=== PATIENT | female | born 1930 | race Caucasian/White ===

== ENCOUNTER 2019-07-24 18:56 | Inpatient (IN) | payer MEDICARE, MEDICAID ==
[~2019-07-24] VITALS: Ht 165.1 cm; Wt 65.6 kg
[2019-07-24 19:42] LABS: Basophils # (auto) 0.1 uL; Basophils % (auto) 0.9 % (0.0-2.0); Eosinophils # (auto) 0.2 uL; Eosinophils % (auto) 1.6 % (0.0-7.0); Hematocrit 45.9 % (36.0-46.0); Lymphocytes # (auto) 1.9 uL; Lymphocytes % (auto) 14.7 % (10.0-50.0); Mean Corpuscular Hemoglobin 29.5 pg (28.0-32.0); Mean Corpuscular Hgb Conc. 32.7 g/dL (32.0-36.0); Mean Corpuscular Volume 90.3 fL (80.0-100.0); Monocytes # (auto) 1.7 uL; Monocytes % (auto) 12.9 % (0.0-12.0); Neutrophils % (auto) 69.9 % (37.0-80.0); Platelet Count (auto) 28 10^3/uL (140-450); Red Blood Cells 5.09 10^6/uL (4.0-5.20); White Blood Cell 12.9 10^3/uL (4.4-10.8)
[2019-07-24 20:01] LABS: Albumin 3.2 g/dL (3.4-5.0); BUN/Creatinine Ratio 15.6; Calcium 8.3 mg/dL (8.5-10.1); Potassium 4.3 mmol/L (3.5-5.1)
[2019-07-24 20:04] LABS: Bilirubin, Total 1.4 mg/dL (0.2-1.0); Total Protein 6.6 g/dL (6.4-8.2)
[2019-07-24 20:24] LABS: INR 0.97 (0.9-1.15); Partial Thromboplastin Time 26.4 sec (23.64-32.05)
[2019-07-24] MEDS ORDERED: LEVOFLOXACIN 500MG 100 ML IV ONE (21:15)
[2019-07-24 22:25] LABS: Urine Bacteria FEW /hpf (None Seen); Urine Blood 1+ /uL (Negative); Urine Hyaline Cast FEW /lpf (0 - 2); Urine Mucus FEW (None Seen); Urine Specific Gravity 1.015 (1.001-1.035); Urine WBC 8 /hpf (0 - 5)
[2019-07-24] MEDS ORDERED: TEMAZEPAM 15 MG CAP PO PRN (22:30)
[2019-07-24] MEDS ORDERED: ONDANSETRON HCL 4 MG/2 ML VIAL IV PRN (22:30)
[2019-07-24] MEDS ORDERED: HYDROcodone-ACET 5/325MG TAB PO PRN (22:30)
[2019-07-25 05:14] VITALS: BP 94/66
--- NOTE | 2019-07-25 05:30 | NUR ---
MS admit from [facility] admitted to tele/MS after SBAR received from Charlotte DUARTE. Patient oriented to Randi Ruiz RN primary RN, unit, room, bed, and unit policies regarding patient care and visiting hours. Alert and oriented x 1 to self. 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 On bedrest, barker catheter patent and draining to gravity. Patient weighed by bedscale and encouraged to call if they need something. All questions and concerns addressed, patient verbalized understanding. Bed in lowest locked position, side rails up x 2, call light within reach. Will continue to monitor every hour and as needed.
[2019-07-25] MEDS: PANTOPRAZOLE 40 MG TAB PO SCH (06:00)
[2019-07-25] MEDS: MORPHINE SULFATE 4 MG/ML SYR/VIAL IV PRN ×2 (06:42→17:25)
--- NOTE | 2019-07-25 07:30 | NUR ---
OPENING SHIFT NOTE: Report received from NOC RNNorma. Assumed care of patient. Patient resting in bed, denies pain. GUERA Covarrubias at bedside for safety. Bed in lowest position, rails x2 up and call light within reach. Updated on plan of care. Will continue to monitor.
[2019-07-25 08:11] LABS: Basophils # (auto) 0.1 uL; Platelet Count (auto) 23 10^3/uL (140-450)
[2019-07-25 08:14] LABS: Basophils % (auto) 0.8 % (0.0-2.0); Eosinophils # (auto) 0.1 uL; Eosinophils % (auto) 0.5 % (0.0-7.0); Hematocrit 44.9 % (36.0-46.0); Lymphocytes # (auto) 0.9 uL; Lymphocytes % (auto) 6.4 % (10.0-50.0); Mean Corpuscular Hemoglobin 30.2 pg (28.0-32.0); Mean Corpuscular Hgb Conc. 33.3 g/dL (32.0-36.0); Mean Corpuscular Volume 90.5 fL (80.0-100.0); Monocytes # (auto) 1.2 uL; Monocytes % (auto) 8.5 % (0.0-12.0); Neutrophils # (auto) 12.3 uL; Neutrophils % (auto) 83.8 % (37.0-80.0); Red Blood Cells 4.97 10^6/uL (4.0-5.20); Red Cell Distribution Width 13.8 % (11.8-14.3); White Blood Cell 14.7 10^3/uL (4.4-10.8)
[2019-07-25 08:33] LABS: BUN/Creatinine Ratio 20.2; Calcium 8.6 mg/dL (8.5-10.1); Potassium 4.2 mmol/L (3.5-5.1)
[2019-07-25 09:00] VITALS: BP 119/76
--- NOTE | 2019-07-25 10:15 | NUR ---
MD: Dr John Bojorquez at bedside. Orders received.
[2019-07-25] MEDS: MEMANTINE HCL 5 MG TAB PO SCH (10:45)
[2019-07-25] MEDS: ENOXAPARIN SOD 30 MG/0.3 ML SYRINGE SC SCH (10:45)
[2019-07-25 11:11] LABS: Creatine Kinase IFCC 136 U/L (26-192)
[2019-07-25 13:00] VITALS: BP 118/77
--- NOTE | 2019-07-25 15:20 | NUR ---
CONSENT: Telephone consent for CTA chest with contrast received from granddaughter, Ayaka Casey. Consent witness by FELICIA Rosen.
--- NOTE | 2019-07-25 15:45 | NUR ---
FAMILY: Family at bedside. Updated on plan of care.
--- NOTE | 2019-07-25 16:00 | NUR ---
CTA: Patient taken via bed to radiology for CTA chest.
[2019-07-25] MEDS ORDERED: IOHEXOL 350 MG/ML 100ML IJ ONE (16:14)
[2019-07-25 17:00] VITALS: BP 118/72
[2019-07-25] MEDS: SODIUM CHLORIDE 0.9% 1,000 ML IV SCH (17:47)
--- NOTE | 2019-07-25 18:50 | NUR ---
MD: Dr Nicholas at bedside to see patient.
--- NOTE | 2019-07-25 19:30 | NUR ---
CLOSING SHIFT NOTE: Report given to NOC Meryl DUARTE. Endorsed care of patient.
[2019-07-25] MEDS: LEVOFLOXACIN 250MG 50 ML IV SCH (21:34)
[2019-07-25 21:45] VITALS: BP 109/69
[2019-07-26] VITALS (7 sets, daily range): BP systolic 109–128; BP diastolic 55–71
[2019-07-26] MEDS: SODIUM CHLORIDE 0.9% 1,000 ML IV SCH ×3 (02:00→20:30)
--- NOTE | 2019-07-26 04:00 | NUR ---
PT IS CALLING FOR LAURITA MADE AWARE SHE IS IN THE HOSPITAL REPOSITIONED IN BED IS ALERT TO PERSON
[2019-07-26] MEDS: PANTOPRAZOLE 40 MG TAB PO SCH (06:19)
--- NOTE | 2019-07-26 07:45 | NUR ---
OPENING SHIFT NOTE ASSUMED CARE OF PATIENT. PATIENT AWAKE AND ALERT SITTING UP IN BED. NO S/S OF DISTRESS OR SOB NOTED. PATIENT VERY EMMONAK AND CAN ONLY SEE SHADOWS. WILL ASSIST PATIENT NEEDED. BED IN LOWEST LOCKED POSITION, CALL LIGHT WITHIN REACH. CONTINUE TO MONITOR.
[2019-07-26] MEDS: MEMANTINE HCL 5 MG TAB PO SCH (09:37)
[2019-07-26] MEDS: ENOXAPARIN SOD 30 MG/0.3 ML SYRINGE SC SCH (09:38)
[2019-07-26] MEDS: MORPHINE SULFATE 4 MG/ML SYR/VIAL IV PRN ×2 (09:38→22:26)
--- NOTE | 2019-07-26 15:00 | NUR ---
PLATELET TRANSFUSION BEGAN PLATELET TRANSFUSION AT THIS TIME AFTER DOUBLE RN VERIFICATION. INSTRUCTED PATIENT ON S/S OF ADVERSE REACTION, PATIENT VERBALIZED UNDERSTANDING. PATIENT IS A&O X1 AT THIS TIME WILL REINFORCE TEACHING CONTINUALLY. RN CONTINUES AT BEDSIDE FOR MONITORING AT THIS TIME.
--- NOTE | 2019-07-26 15:15 | NUR ---
PLATELET TRANSFUSION VS CHECKED AFTER 15 MINUTES AND NOTED WNL. PATIENT HAS NO COMPLAINTS AT THIS TIME AND SHOWS NO S/S OF DISTRESS OR SOB NOTED. INCREASED TRANSFUSION RATE SLIGHTLY AT THIS TIME. WILL CONTINUE TO MONITOR PATIENT.
[2019-07-26 16:48] LABS: Basophils # (auto) 0.1 uL; Eosinophils # (auto) 0.2 uL; Hemoglobin 12.2 g/dL (12.2-16.2); Mean Corpuscular Hgb Conc. 32.9 g/dL (32.0-36.0); Monocytes # (auto) 1.7 uL
[2019-07-26 16:51] LABS: Basophils % (auto) 0.4 % (0.0-2.0); Eosinophils % (auto) 1.5 % (0.0-7.0); Hematocrit 37.2 % (36.0-46.0); Lymphocytes % (auto) 7.6 % (10.0-50.0); Mean Corpuscular Hemoglobin 29.7 pg (28.0-32.0); Mean Corpuscular Volume 90.5 fL (80.0-100.0); Neutrophils # (auto) 10.8 uL; Neutrophils % (auto) 78.5 % (37.0-80.0); Platelet Count (auto) 37 10^3/uL (140-450); Red Blood Cells 4.11 10^6/uL (4.0-5.20); Red Cell Distribution Width 13.6 % (11.8-14.3); White Blood Cell 13.7 10^3/uL (4.4-10.8)
--- NOTE | 2019-07-26 17:35 | NUR ---
TRANSFUSION COMPLETE TRANSFUSION IS COMPLETED AT THIS TIME, PATIENT TOLERATED WELL AND SHOWS NO S/S OF DISTRESS OR SOB AND HAS NO COMPLAINTS. WILL CONTINUE TO MONITOR.
--- NOTE | 2019-07-26 18:46 | NUR ---
END OF SHIFT NOTE PATIENT RESTING COMFORTABLY IN BED WITH EYES CLOSED. RESPIRATIONS EVEN AND UNLABORED. BED IN LOWEST LOCKED POSITION, CALL LIGHT WITHIN REACH. WILL ENDORSE CARE TO NOC RN.
--- NOTE | 2019-07-26 20:00 | NUR ---
Opening Shift Note Assumed care of patient, patient open eyes to name, oriented to self, reoriented to time, place, and situation. On oxygen at 2L via NC with even and unlabored respirations, no S/S of distress or SOB. Wilhelm intact and draining to gravity with clear light emily urine, no kinks. IV to right forearm intact and patent infusing NS at 100ml/hr. Bed low locked position with side rails up x 3 and call light within reach, bed alarm on. Instructed on POC and to call for assist PRN, will continue to monitor for changes Q1hr and PRN.
[2019-07-26] MEDS: LEVOFLOXACIN 250MG 50 ML IV SCH (22:08)
--- NOTE | 2019-07-26 22:30 | NUR ---
Optifoam Applied Preventative Optifoam applied to sacrum. Patient turned to left side. Will continue to turn q2hrs.
[2019-07-27] VITALS (12 sets, daily range): BP systolic 105–127; BP diastolic 46–65
[2019-07-27] MEDS: SODIUM CHLORIDE 0.9% 1,000 ML IV SCH ×2 (06:00→16:30)
[2019-07-27] MEDS: PANTOPRAZOLE 40 MG TAB PO SCH (06:00)
[2019-07-27 07:04] LABS: Basophils # (auto) 0.1 uL; Eosinophils # (auto) 0.2 uL; Hemoglobin 11.7 g/dL (12.2-16.2); Lymphocytes # (auto) 1.1 uL; Mean Corpuscular Hgb Conc. 33.2 g/dL (32.0-36.0); White Blood Cell 11.2 10^3/uL (4.4-10.8)
--- NOTE | 2019-07-27 07:04 | NUR ---
Closing note patient resting in bed with oxygen on at 2L via NC, even and unlabored respirations, no s/s of distress noted. IV intact and patent infusing IVF per order. Patient turned q2hrs throughout shift. Wilhelm intact and draining to gravity. Bed in low locked position with side rails up x 3 and call light within reach, bed alarm on. Endorsed care to day shift RN.
[2019-07-27 07:09] LABS: Basophils % (auto) 0.6 % (0.0-2.0); Eosinophils % (auto) 1.3 % (0.0-7.0); Hematocrit 35.1 % (36.0-46.0); Mean Corpuscular Hemoglobin 30.1 pg (28.0-32.0); Mean Corpuscular Volume 90.5 fL (80.0-100.0); Monocytes # (auto) 1.4 uL; Monocytes % (auto) 12.8 % (0.0-12.0); Neutrophils # (auto) 8.5 uL; Neutrophils % (auto) 75.3 % (37.0-80.0); Red Blood Cells 3.88 10^6/uL (4.0-5.20); Red Cell Distribution Width 13.4 % (11.8-14.3)
[2019-07-27 07:16] LABS: Platelet Count (auto) 49 10^3/uL (140-450)
[2019-07-27 07:23] LABS: BUN/Creatinine Ratio 18.1; Calcium 7.5 mg/dL (8.5-10.1); Potassium 3.8 mmol/L (3.5-5.1)
--- NOTE | 2019-07-27 08:00 | NUR ---
OPENING NOTE PATIENT ROUNDS DONE. PATIENT WAS AWAKE, AO X1 (ORIENTED TO SELF ONLY) NO SIGNS OF DISTRESS NOTED. PATIENT EXPERIENCES PAIN WHEN TRYING TO TURN, PREFERS TO LAY PRESSURE ON THE LEFT SIDE, DUE TO PAIN ON THE RIGHT SIDE (RELATED TO FRACTURED HIP). IV RUNNING .9NS AT 100, PATIENT ON 2L NC. CALL LIGHT WITHIN REACH, BRAKES LOCKED WITH BED IN LOWEST POSITION. Signed: 07/27/19 at 1720 by LENNOX COPPOLA <Co-Signature Required> Co-Signed: 07/27/19 at 1720 by Nazario Hein RN
[2019-07-27] MEDS: ENOXAPARIN SOD 30 MG/0.3 ML SYRINGE SC SCH (10:00)
[2019-07-27] MEDS: MEMANTINE HCL 5 MG TAB PO SCH (11:26)
--- NOTE | 2019-07-27 12:53 | NUR ---
URINALYSIS WATT SPECIMEN COLLECTED AND SENT TO LAB. Signed: 07/27/19 at 1315 by LENNOX COPPOLA <Co-Signature Required> Co-Signed: 07/27/19 at 1315 by Nazario Hein RN
--- NOTE | 2019-07-27 13:53 | NUR ---
PLATELET INFUSION BEGAN. RATE AT 50ML, TO MONITOR FOR ANY TRANSFUSION REACTIONS OVER THE NEXT 15 MINUTES. VITAL SIGNS WITHIN NORMAL LIMITS.
--- NOTE | 2019-07-27 14:08 | NUR ---
15 MINUTES POST TRANSFUSION BEGAN. NO SIGNS OF TRANSFUSION REACTION. RATE INCREASED FROM 50 ML TO 600 ML/HR. WILL CONTINUE TO MONITOR FOR ANY ADVERSE REACTIONS.
[2019-07-27] MEDS ORDERED: DEXTROSE (50%) 50ML SYRG IV PRN (14:15)
--- NOTE | 2019-07-27 15:03 | NUR ---
INFUSION END. PATIENT TOLERATED WELL. NO SIGNS OF ADVERSE REACTION. WILL CONTINUE TO MONITOR PATIENT.
--- NOTE | 2019-07-27 16:10 | NUR ---
FAMILY AT BEDSIDE PATIENT'S GRANDDAUGHTER, LAURITA, AT BEDSIDE. STATED CONCERNS ABOUT GRANDMOTHERS CONDITION STATING PATIENT APPEARS MORE LETHARGIC THAN YESTERDAY, DECREASED APPETITE, AND STATED PATIENTS PLATELETS ARE USUALLY IN THE (70s). DR ULLOA NOTIFIED, WILL DISCUSS CONCERNS WITH LAURITA 07/28 IN THE MORNING. GRANDDAUGHTER SAID TO CALL IF ANYTHING COMES UP, CLAIMS TO HAVE POWER OF MAMMA LOGIST. LAURITA INMAN Signed: 07/27/19 at 1719 by LENNOX COPPOLA <Co-Signature Required> Co-Signed: 07/27/19 at 1719 by Nazario Hein RN
--- NOTE | 2019-07-27 16:13 | NUR ---
assessment Patient is a 88 year old female who is alert and oriented. Prior to admission patient lived home with family and functioned with assistance. Per patient she fell and fractured her hip. Patient has a fww for home use. Patient does not not remember who her PCP is. I informed patient her post discharge needs to be determined after surgery and prior to discharge. Patient informed me to call her granddaughter Ayaka to find out what is best for her SNF or home with PT. I have left a message for Ayaka to return my call. Per Nazario DUARTE patient is not stable for surgery and will be here over the weekend. I informed patient she has a right to speak to a healthcare social worker regarding all care. I informed patient she has a right to participate in any and all discharge planning. Patient does not have a POA and advanced directive. I have offered patient information on POA and advanced directives. I informed the patient the advantages and benefits of having an Advanced Directive. Patient verbalized understanding and agreed to discharge plan. Addendum: 07/27/19 at 1620 by Emmanuelle RANGEL Amended: Links added.
[2019-07-27] MEDS: InsuLIN REG 1unit/0.01ml Soln (100units/ml) SC SCH (18:00)
--- NOTE | 2019-07-27 18:12 | NUR ---
FOLLOW UP ON PLATELET UNIT 2 PER BLOOD BANK, THE PLATELETS HAVE NOT ARRIVED YET.
[2019-07-27] MEDS: ACCU-CHEK COMFORT CURVE STRIP VI SCH (18:42)
--- NOTE | 2019-07-27 20:00 | NUR ---
Opening Shift Note Assumed care of patient, awake and alert. No S/S of distress/SOB or pain. 02 @ 2L/min via nasal cannula. Patient is sleeping. Body is in good alignment. Color to right lower extremity is adequate. Patient repositioned, Bed in low position and call light in reach, will continue to monitor for changes Q1hr and PRN.
[2019-07-28] VITALS (12 sets, daily range): BP systolic 93–126; BP diastolic 49–66
[2019-07-28] MEDS: LEVOFLOXACIN 250MG 50 ML IV SCH ×2 (00:38→21:46)
[2019-07-28] MEDS: methylPREDNISolone SOD SUCC 125 MG/2 ML VL IV SCH ×4 (00:38→21:46)
[2019-07-28] MEDS: SODIUM CHLORIDE 0.9% 1,000 ML IV SCH ×3 (02:30→22:39)
[2019-07-28] MEDS: PANTOPRAZOLE 40 MG TAB PO SCH (05:44)
[2019-07-28] MEDS: ACCU-CHEK COMFORT CURVE STRIP VI SCH ×4 (05:52→18:20)
[2019-07-28] MEDS: InsuLIN REG 1unit/0.01ml Soln (100units/ml) SC SCH ×4 (05:52→18:20)
--- NOTE | 2019-07-28 07:10 | NUR ---
CARE ENDORSED TO NOC SHIFT RN PLATELET TRANSFUSION STILL RUNNING. FIELD OBSERVER WILL FINISH THE TRANSFUSION.
--- NOTE | 2019-07-28 07:23 | NUR ---
Patient resting comfortably. No distress noted. Report given to day shift RN.
--- NOTE | 2019-07-28 07:30 | NUR ---
Opening Shift Note Assumed care of patient, awake and alert. No S/S of distress/SOB or pain. Instructed on POC and to call for assist PRN, will continue to monitor for changes Q1hr and PRN.
[2019-07-28 07:43] LABS: % Iron Saturation 8.4 % (15-50)
[2019-07-28 08:36] LABS: Basophils # (auto) 0 uL; Basophils % (auto) 0.2 % (0.0-2.0); Eosinophils # (auto) 0 uL; Lymphocytes # (auto) 0.3 uL; Monocytes # (auto) 0.2 uL; Neutrophils % (auto) 94.1 % (37.0-80.0); Nucleated Red Blood Cells % 0.1 %
[2019-07-28 08:38] LABS: Eosinophils % (auto) 0.1 % (0.0-7.0); Hematocrit 33.1 % (36.0-46.0); Lymphocytes % (auto) 3.1 % (10.0-50.0); Mean Corpuscular Hgb Conc. 33.3 g/dL (32.0-36.0); Mean Corpuscular Volume 90.1 fL (80.0-100.0); Monocytes % (auto) 2.5 % (0.0-12.0); Neutrophils # (auto) 9.1 uL; Platelet Count (auto) 49 10^3/uL (140-450); Red Blood Cells 3.68 10^6/uL (4.0-5.20); Red Cell Distribution Width 13.4 % (11.8-14.3); White Blood Cell 9.7 10^3/uL (4.4-10.8)
--- NOTE | 2019-07-28 09:45 | NUR ---
SPOKE WITH DR. KIDD. INFORMED ME THAT HE WANTS TO DO THE PATIENT'S PROCEDURE TOMORROW 07/29. THE PATIENT'S PLATELETS HAVE BEEN TOO LOW TO DO THE PROCEDURE. OBTAINED ORDER TO RECHECK PLATELETS AT 1200. WILL IN[address] KIDD OF THE RESULTS AND OBTAIN FURTHER ORDERS. WELL DETERMINE WHETHER OR NOT THE PATIENT IS GOING TO SURGERY TOMORROW.
[2019-07-28] MEDS: MEMANTINE HCL 5 MG TAB PO SCH (10:23)
--- NOTE | 2019-07-28 11:15 | NUR ---
WOUND CARE NOTE: IN TO SEE PATIENT AT THIS TIME FOR SKIN INTEGRITY. PATIENT ADMITTED TO [facility] WITH DIAGNOSIS OF RIGHT FEMUR FRACTURE. CURRENT YAEL SCORE IS 12. PATIENT WAS FOUND DOWN ON THE FLOOR BY THE PATIENT'S FAMILY. SHE WAS DOWN ON HARD SURFACE FOR UNKNOWN PERIOD OF TIME. PATIENT IS AWAITING SURGERY FOR FEMUR FRACTURE, PENDING IMPROVEMENT IN HER PLATELET COUNT. TODD FOAM BOOTS APPLIED TO BILATERAL FEET/HEELS TO OFFLOAD HER HEELS PREVENTATIVE. PATIENT IS NOTED TO HAVE WHAT APPEARS TO BE A DTI TO THE RIGHT/LEFT SACRUM. SKIN IS INTACT, DARK MAROON, NON BLANCHING. OPTIFOAM GENTLE SACRAL DRESSING IN PLACE. WOUND WAS PHOTOGRAPHED FOR REFERENCE. UNABLE TO PLACE PATIENT ON AIR MATTRESS D/T HER HIP FRACTURE STATUS. ADVISED BEDSIDE NURSE TO PROVIDE GOOD QUALITY TURNS ONTO HER LEFT SIDE, AND SUPINE POSITION. SHE SHOULD AVOID REPOSITIONING ONTO HER RIGHT HIP UNTIL AFTER SURGICAL REPAIR. PATIENT SHOULD BE TURNED OFTEN, D/T HER DTI STATUS, AVOIDING SPENDING TOO MUCH TIME ON RESTING ON HER WOUND. RECOMMEND: FREQUENT TURN SCHEDULE, AVOIDING POSITIONING ONTO RIGHT HIP, TODD FOAM BOOTS, BID/PRN APPLICATION WITH MOISTURE BARRIER CREAM, OPTIFOAM GENTLE SACRAL DRESSING, DIETARY CONSULT, CONTINUED MONITORING BY WOUND CARE TEAM. Addendum: 07/28/19 at 1417 by Ligia Alatorre RN Amended: Links added.
[2019-07-28 12:01] LABS: Basophils # (auto) 0 uL; Basophils % (auto) 0.1 % (0.0-2.0); Eosinophils # (auto) 0 uL; Hematocrit 35.8 % (36.0-46.0); Hemoglobin 11.8 g/dL (12.2-16.2); Lymphocytes # (auto) 0.2 uL; Lymphocytes % (auto) 3.1 % (10.0-50.0); Mean Corpuscular Hemoglobin 29.7 pg (28.0-32.0); Mean Corpuscular Hgb Conc. 33.1 g/dL (32.0-36.0); Mean Corpuscular Volume 89.9 fL (80.0-100.0); Monocytes # (auto) 0.1 uL; Monocytes % (auto) 1.5 % (0.0-12.0); Neutrophils # (auto) 7.5 uL; Neutrophils % (auto) 95.3 % (37.0-80.0); Platelet Count (auto) 67 10^3/uL (140-450); Red Blood Cells 3.98 10^6/uL (4.0-5.20); Red Cell Distribution Width 13.7 % (11.8-14.3); White Blood Cell 7.9 10^3/uL (4.4-10.8)
--- NOTE | 2019-07-28 14:41 | NUR ---
NUTRITION ASSESSMENT NOTES Please refer to link notes of nutrition screen form filed under the intervention section of the plan of care for further details. Est. Needs: 1800 kcal to 2050 kcal (25-30 kcal/kgBW), 59 gms to 71 gms pro (1.0-1.2 gms/kgBW). Will continue to monitor pertinent labs and reassess nutrient need prn Thank you. Addendum: 07/28/19 at [address] Amended: Links added.
--- NOTE | 2019-07-28 17:17 | NUR ---
Transfusion of platelets unit 1 began starting rate at 50ml/hr. will continue to stay in the room for 15 minutes and monitor the patient.
--- NOTE | 2019-07-28 17:32 | NUR ---
15 minute assessment patient tolerating transfusion well. vital signs remain within baseline ranges. no signs or reports of transfusion reactions. infusion rate increased to 600 ml/hr. will continue to monitor infusion.
--- NOTE | 2019-07-28 18:35 | NUR ---
TRANSFUSION OF 2ND UNIT STARTED. STARTED AT 50ML/HR. WILL WATCH FOR 15 MINS TO ASSESS FOR ANY SIGNS OF TRANSFUSION REACTION. VITAL SIGNS WITHIN BASELINE.
--- NOTE | 2019-07-28 18:50 | NUR ---
15 MINUTE ASSESSMENT NO SIGNS OR REPORTS OF A TRANSFUSION REACTION. INFUSION RATE INCREASED TO 600ML/HR. VITAL SIGNS WITHIN NORMAL LIMITS. WILL CONTINUE TO MONITOR PATIENT'S INFUSION.
--- NOTE | 2019-07-28 20:00 | NUR ---
Opening Shift Note Assumed care of patient, awake and alert. No S/S of distress/SOB or pain. Patient receiving last unit of Platelets. No signs or symptoms of adverse reaction. She is talkative with confusion, pulling at IV. IV to RAC remains intact. Instructed on POC and to call for assist PRN, will continue to monitor for changes Q1hr and PRN. Bed in low position and call light in reach.
--- NOTE | 2019-07-28 20:29 | NUR ---
Post Platelet transfusion Vital signs: 123/62, 97.7, 82, 20. Condition remains unchanged.
[2019-07-28] MEDS: ACETAMINOPHEN 325 MG TAB PO PRN (21:03)
[2019-07-29] MEDS: InsuLIN REG 1unit/0.01ml Soln (100units/ml) SC SCH ×4 (00:09→18:01)
[2019-07-29] MEDS: ACCU-CHEK COMFORT CURVE STRIP VI SCH ×5 (00:09→23:58)
--- NOTE | 2019-07-29 05:00 | NUR ---
IV insertion IV access obtained, via clean sterile technique by inserting 20 gauge catheter at Left forearm after one attempt). IV secured properly. No trauma to site. Patient tolerated procedure well.
--- NOTE | 2019-07-29 05:37 | NUR ---
IV removal IV DC'd with sterile technique, catheter fully intact. Pressure dressing applied to site right forearm. Patient tolerated procedure well. Discharged with aftercare instructions per MD. NOTE: EKG performed for scheduled right hip surgery today.
[2019-07-29 05:55] VITALS: BP 94/55
[2019-07-29] MEDS: PANTOPRAZOLE 40 MG TAB PO SCH (06:00)
[2019-07-29] MEDS: methylPREDNISolone SOD SUCC 125 MG/2 ML VL IV SCH ×2 (06:02→22:07)
--- NOTE | 2019-07-29 07:15 | NUR ---
Patient resting comfortably asking for her son. No distress noted. Report given to day shift RN.
[2019-07-29 07:25] LABS: Basophils # (auto) 0 uL; Eosinophils # (auto) 0 uL; Hematocrit 32.5 % (36.0-46.0); Hemoglobin 10.7 g/dL (12.2-16.2); Lymphocytes # (auto) 0.5 uL; Lymphocytes % (auto) 2.7 % (10.0-50.0); Mean Corpuscular Hemoglobin 29.6 pg (28.0-32.0); Mean Corpuscular Volume 89.7 fL (80.0-100.0); Monocytes # (auto) 1.1 uL; Monocytes % (auto) 6.1 % (0.0-12.0); Neutrophils # (auto) 15.7 uL; Neutrophils % (auto) 91.2 % (37.0-80.0); Platelet Count (auto) 147 10^3/uL (140-450); Red Blood Cells 3.62 10^6/uL (4.0-5.20); Red Cell Distribution Width 13.3 % (11.8-14.3); White Blood Cell 17.2 10^3/uL (4.4-10.8)
--- NOTE | 2019-07-29 07:30 | NUR ---
Opening Shift Note Assumed care of patient, awake and alert. No S/S of distress/SOB or pain when laying still. Instructed on POC and to call for assist PRN, will continue to monitor for changes Q1hr and PRN.
[2019-07-29] MEDS ORDERED: fentaNYL CITRATE 100 MCG/2 ML VL ONE ×2 (07:36→08:02)
[2019-07-29] MEDS ORDERED: fentaNYL CITRATE 5 ML ONE (07:36)
[2019-07-29] MEDS ORDERED: SODIUM CHLORIDE LOCK 30 ML ONE (07:36)
[2019-07-29] MEDS ORDERED: ETOMIDATE (2MG/ML) 20ML VIAL IV ONE (07:36)
[2019-07-29] MEDS ORDERED: MIDAZOLAM HCL 1MG/1ML-2 ML VIAL ONE ×2 (07:36→09:14)
[2019-07-29] MEDS ORDERED: ROCURONIUM 10MG/ML 10ML VIAL IV ONE (07:36)
[2019-07-29] MEDS ORDERED: LIDOCAINE HCL 2% TOP JELLY 5ML TOP ONE (07:38)
[2019-07-29] MEDS ORDERED: LIDOCAINE 2% (LOCAL ANESTH.) PF 5ml SDV ONE (07:38)
[2019-07-29 08:00] VITALS: BP 102/58
[2019-07-29 08:00] LABS: INR 1.02 (0.9-1.15); Partial Thromboplastin Time 28.5 sec (23.64-32.05)
[2019-07-29] MEDS ORDERED: TETRACAINE 1% INJ 2 ML VIAL IJ ONE (08:00)
[2019-07-29] MEDS ORDERED: ceFAZolin 1GM/50ML 50 ML IV ONE (08:00)
[2019-07-29] MEDS ORDERED: PROPOFOL 10 MG/ML 20 ML IV ONE (08:02)
[2019-07-29] MEDS ORDERED: EPINEPHrine HCL 1 MG/1 ML AMP ONE (08:02)
[2019-07-29] MEDS ORDERED: HYDROCORTISONE SOD SUCC 100 MG/2ML INJ VIAL ONE (09:25)
[2019-07-29] MEDS ORDERED: ACCU-CHEK COMFORT CURVE STRIP VI ONE (09:45)
[2019-07-29] MEDS ORDERED: ONDANSETRON HCL 4 MG/2 ML VIAL IV PRN (09:45)
[2019-07-29] MEDS ORDERED: HYDROmorphone HCL 2 MG/ML VL IV PRN (09:45)
[2019-07-29] MEDS ORDERED: fentaNYL CITRATE 100 MCG/2 ML VL IV PRN (09:45)
[2019-07-29] MEDS: LACTATED RINGER'S 1,000 ML IV SCH ×2 (10:03→20:03)
[2019-07-29] MEDS: ceFAZolin 1GM/50ML 50 ML IV SCH ×3 (11:06→22:26)
[2019-07-29] MEDS: MEMANTINE HCL 5 MG TAB PO SCH (11:07)
[2019-07-29] MEDS: SODIUM CHLORIDE 0.9% 1,000 ML IV SCH ×3 (11:07→21:57)
[2019-07-29 13:00] VITALS: BP 90/47
[2019-07-29] MEDS: ACETAMINOPHEN 325 MG TAB PO PRN (13:05)
[2019-07-29] MEDS: SODIUM CHLOR 0.9% PF (SALINE LOCK) 10ML VIAL/SYR IV SCH ×2 (15:11→21:56)
[2019-07-29] MEDS: MORPHINE SULF INJ 2 MG/ML SYRINGE 1ML IV PRN (16:10)
[2019-07-29 17:00] VITALS: BP 119/56
--- NOTE | 2019-07-29 20:00 | NUR ---
RECEIVED IN BED ANSWERS TO HER NAME REPOSITIONED TO LEFT SIDE RT HIP DRESSING WITH OLD DRAINAGE SAME IS DRY WATT IS INTACT AND DRAINING YELLOW URINE DENIES ANY PAIN AT THIS TIME
[2019-07-29] MEDS: LEVOFLOXACIN 250MG 50 ML IV SCH (21:55)
[2019-07-29 22:00] VITALS: BP 114/71
[2019-07-30 04:56] VITALS: BP 117/68
[2019-07-30] MEDS: ACCU-CHEK COMFORT CURVE STRIP VI SCH ×4 (05:57→23:30)
[2019-07-30] MEDS: LACTATED RINGER'S 1,000 ML IV SCH ×2 (05:59→16:03)
[2019-07-30] MEDS: PANTOPRAZOLE 40 MG TAB PO SCH (06:04)
[2019-07-30] MEDS: InsuLIN REG 1unit/0.01ml Soln (100units/ml) SC SCH ×5 (06:05→23:31)
[2019-07-30] MEDS: SODIUM CHLOR 0.9% PF (SALINE LOCK) 10ML VIAL/SYR IV SCH ×3 (06:07→22:02)
--- NOTE | 2019-07-30 06:50 | NUR ---
DENIES PAIN IS PULLING ON WATT IV IE INFILLTRATED ATTEM PTED TO REINSERT X3 NO LUCK.BED ALARM IS ON
[2019-07-30 06:57] LABS: Hematocrit 34.7 % (36.0-46.0); Hemoglobin 11.3 g/dL (12.2-16.2); Mean Corpuscular Hgb Conc. 32.7 g/dL (32.0-36.0); Mean Corpuscular Volume 88.7 fL (80.0-100.0); Platelet Count (auto) 150 10^3/uL (140-450); Red Blood Cells 3.91 10^6/uL (4.0-5.20); Red Cell Distribution Width 13.7 % (11.8-14.3); White Blood Cell 19.9 10^3/uL (4.4-10.8)
[2019-07-30 07:05] LABS: Basophils % (manual) 0 (0.0-2.0); Blast Cells 0; Eosinophils % (manual) 0 (0-7); Metamyelocytes % 0; Myelocytes % 0; Promyelocytes % 0; Reactive Lymphocytes 0
--- NOTE | 2019-07-30 07:05 | NUR ---
IV REMOVED FROM LT WRIST
[2019-07-30 07:16] LABS: Band Neutrophils % (manual) 1; Lymphocytes % (manual) 2 (10.0-50.0); Monocytes % (manual) 7 (0-12)
[2019-07-30 07:26] LABS: Albumin 2.5 g/dL (3.4-5.0); Calcium 7.8 mg/dL (8.5-10.1); Potassium 3.1 mmol/L (3.5-5.1)
--- NOTE | 2019-07-30 07:30 | NUR ---
Opening Shift Note Assuming care of patient at this time. Patient is awake and alert to herself. Patient is having some periods of confusion. Patient believes she needs to get up to use bathroom. Instructed patient on the placement of barker. Patient is also expressing that she needs to have surgery. Educated patient that surgical procedure took place yesterday. Bed is locked and lowered. Repositioned patient. Instructed patient and family (both granddaughter and daughter have called) on the plan of care for today and to call for assistance as needed. Call light within reach. Will continue to round hourly and as needed.
[2019-07-30 07:31] LABS: BUN/Creatinine Ratio 21.9; Bilirubin, Total 0.7 mg/dL (0.2-1.0); Total Protein 5.9 g/dL (6.4-8.2)
[2019-07-30 09:00] VITALS: BP 138/80
[2019-07-30 09:30] LABS: Ferritin 378.6 ng/mL (10-322); Folate (Folic Acid) 12.27 ng/mL (5.38-24)
--- NOTE | 2019-07-30 09:55 | NUR ---
Physical Therapy Patient has gotten up to chair at this time with physical therapy.
--- NOTE | 2019-07-30 10:00 | NUR ---
at bedside Dr. Bojorquez at bedside discussing plan of care with patient and this RN. The plan is to discharge patient tomorrow.
--- NOTE | 2019-07-30 10:10 | NUR ---
Call to Family Call to Granddaughter at this time to determine discharge preferences. No answer. Left a message with contact info. Awaiting callback.
[2019-07-30] MEDS: MEMANTINE HCL 5 MG TAB PO SCH (10:58)
[2019-07-30] MEDS: methylPREDNISolone SOD SUCC 125 MG/2 ML VL IV SCH ×2 (10:58→22:02)
[2019-07-30] MEDS: MORPHINE SULF INJ 2 MG/ML SYRINGE 1ML IV PRN ×3 (10:58→23:22)
--- NOTE | 2019-07-30 11:26 | NUR ---
Return call from Family Ayaka, granddaughter, has called at this time. Family wants patient to go to [facility]. Will notify social psychologist.
--- NOTE | 2019-07-30 11:28 | NUR ---
Call to Type Cutter Call to Emmanuelle Shen in social worker delinquency prevention. Left a message regarding SNF placement and family's preferences. Awaiting callback.
--- NOTE | 2019-07-30 11:33 | NUR ---
Cement Truck [employer]er Spoke to Emmanuelle. Emmanuelle is now aware about family's wish to [facility].
[2019-07-30 13:00] VITALS: BP 148/78
--- NOTE | 2019-07-30 14:11 | NUR ---
D/C Planning Per SS consult for SNF placement. Information and choice letter was given to granddatab Marley via verbal report began to read list for SNF and she requested [facility]. Pt granddaughter Ayaka verbalized understanding d/c plan. Contacted [facility] Ph: ) Fax: ( [phone]) faxed medical records. Per Marcus from [facility] Pt has been accepted to room [address] Sinclair. Will set up transportation upon d/c day.
[2019-07-30] MEDS: SODIUM CHLORIDE 0.9% 1,000 ML IV SCH (14:30)
--- NOTE | 2019-07-30 15:53 | NUR ---
Nutrition Consult and Follow-up Notes Wt.: 64.3 kg as of yesterday. Pt's on oxygen via nasal cannula, asleep, no immediate family member at bedside during rounds this morning. Pt's s/p Closed reduction internal fixation right intertrochanter hip fracture (07/29/19), no signs of distress noted earlier, currently on Regular diet, with inadequate PO intake aeb 50% ave. consumed meals (x6) in last 3 days. Est. Needs: 1800 kcal to 2050 kcal (25-30 kcal/kgBW), 59 gms to 71 gms pro (1.0-1.2 gms/kgBW). Will continue to monitor pertinent labs and reassess nutrient need prn Labs: Gluc 135 H, Cl 108 H, K 3.1 L, BUN 21 H, Ca 7.8 L, AST 74 H, ALT 98 H, Tpro 5.9 L, Alb 2.5 L Skin: Stephen scale 13, mod risk, pt's right lower hip incision dry and intact per manager workers compensation. GI: Pt's no bowel activity since 07/24/19 per manager workers compensation. PES: Partially resolved: Increased nutrient needs r/t current medical condition aeb 105% IBW, BMI 21.8 kg/m2. decreased muscle mass, NPO for surgery. Altered nutrition related lab values r/t current/chronic medical condition aeb hyperglycemia,low Fe.TIBC% sat levels. Will continue to monitor PO intake, skin status, pertinent labs and weight trend. F/u in 3 to 5 days. Rec.: 1.) Consider Cardiac: 2 gms Na, Low Chol, Low Fat diet with Ensure Enlive 1 carton BID). 2.) If Albumin continues trending down, consider Prostat 1 pkt BID. 3.) Consider daily MVI with minerals and Asc acid 500 mgs BID with daily Fe 325 mg prn and Asc acid 500 mgs BID. 4.) Continue close supervision and feeding assistance prn during meals. 5.) Refer to RD for further nutrition educ. and weight monitoring upon discharge. 6.) Continue current plan of care. Thank you for this consult.
[2019-07-30 17:00] VITALS: BP 130/69
--- NOTE | 2019-07-30 19:22 | NUR ---
Closing Shift Note Patient is resting in bed. Patient does not appear to be in any distress or shortness of breath. Report given to Meryl night monitor RN. Will endorse care to the night monitor RN.
[2019-07-30 21:41] VITALS: BP 154/80
[2019-07-30] MEDS: LEVOFLOXACIN 250MG 50 ML IV SCH (22:01)
--- NOTE | 2019-07-30 22:45 | NUR ---
RECEIVE IN BED PULLING AT IV AND WATT IV INFITRATED SAME REMOVED IV RESTARTED 22 GAUGE IN LT AC
[2019-07-31] MEDS: SODIUM CHLORIDE 0.9% 1,000 ML IV SCH (00:30)
[2019-07-31] MEDS: LACTATED RINGER'S 1,000 ML IV SCH ×2 (02:03→12:03)
[2019-07-31 05:00] VITALS: BP 116/64
[2019-07-31] MEDS: ACCU-CHEK COMFORT CURVE STRIP VI SCH ×2 (05:58→12:00)
[2019-07-31] MEDS: PANTOPRAZOLE 40 MG TAB PO SCH (06:04)
[2019-07-31] MEDS: InsuLIN REG 1unit/0.01ml Soln (100units/ml) SC SCH ×2 (06:05→12:00)
[2019-07-31] MEDS: SODIUM CHLOR 0.9% PF (SALINE LOCK) 10ML VIAL/SYR IV SCH (06:06)
[2019-07-31 06:44] LABS: Hematocrit 30.3 % (36.0-46.0); Hemoglobin 10.1 g/dL (12.2-16.2); Mean Corpuscular Hemoglobin 29.6 pg (28.0-32.0); Mean Corpuscular Hgb Conc. 33.3 g/dL (32.0-36.0); Platelet Count (auto) 116 10^3/uL (140-450); Red Blood Cells 3.41 10^6/uL (4.0-5.20); Red Cell Distribution Width 13.6 % (11.8-14.3); White Blood Cell 16.6 10^3/uL (4.4-10.8)
[2019-07-31 06:46] LABS: Basophils % (manual) 0 (0.0-2.0); Blast Cells 0; Eosinophils % (manual) 0 (0-7); Myelocytes % 0; Promyelocytes % 0; Reactive Lymphocytes 0
[2019-07-31 07:07] LABS: Band Neutrophils % (manual) 1; Lymphocytes % (manual) 1 (10.0-50.0); Metamyelocytes % 1; Monocytes % (manual) 6 (0-12)
--- NOTE | 2019-07-31 07:30 | NUR ---
Opening Shift Note Assuming care of patient at this time. Patient is awake and alert to herself. Patient denies pain. Patient shows no signs or symptoms of distress or shortness of breath. Bed is locked and lowered with side rails up x2. Repositioned patient. Instructed patient and family (granddaughter has called) on the plan of care for today and to call for assistance as needed. Call light within reach. Will continue to round hourly and as needed.
--- NOTE | 2019-07-31 08:18 | NUR ---
Barker Catheter Per Dr. Bojorquez, patient is to be discharged with barker catheter.
[2019-07-31 09:00] VITALS: BP 97/53
--- NOTE | 2019-07-31 09:35 | NUR ---
D/C planning Contacted General transport ph:) spoke to Advised Malachi to set up transport between 12:30-13:30. Addendum: 07/31/19 at 0939 by JERICA RANGEL Amended: Links added.
[2019-07-31] MEDS: MEMANTINE HCL 5 MG TAB PO SCH (09:44)
[2019-07-31] MEDS: MORPHINE SULF INJ 2 MG/ML SYRINGE 1ML IV PRN (09:44)
[2019-07-31] MEDS ORDERED: RIVAROXABAN 10 MG TAB PO SCH (10:00)
[2019-07-31] MEDS ORDERED: ENOXAPARIN SOD 30 MG/0.3 ML SYRINGE SC SCH (10:00)
--- NOTE | 2019-07-31 10:25 | NUR ---
Re: Call to Family Call to granddaughter at this time. Granddaughter is now aware of patient pick-up time between 12:30-13:30.
--- NOTE | 2019-07-31 12:30 | NUR ---
Family at bedside Daughter, Lenore, and family friend at bedside awaiting transport of patient.
--- NOTE | 2019-07-31 12:50 | NUR ---
Pt being trans to another hosp Order obtained for transfer of [facility] to [facility]. Report called/given to Naty. Report given to transport team. Medication reconciliation form completed and copy given to transport team to give to facility. Transported via [facility] accompanied by daughter, Lenore, and family friend along with transfer paperwork. No distress noted on time of departure. Family notified of destination and room number, verbalized understanding.
[2019-07-31 12:53] VITALS: BP 108/66
--- NOTE | 2019-07-31 13:02 | NUR ---
Report Report given to Naty at [facility]. Naty is aware that patient is in route.
== END 2019-07-31 12:45 | DRG 480 ==
LOC: ER 18:56 → EDBD 18:56 → OVERFLOW 18:57 → CENTRAL 07-25 05:10
PROVIDERS: ADMIT Nurse Practitioner; ATTEND Family Medicine
PROC: 30233R1 Transfusion of Nonautologous Platelets into Peripheral Vein, Percutaneous Approach (ICD-10-PCS; principal; 2019-07-26)
PROC: 0QS606Z Reposition Right Upper Femur with Intramedullary Internal Fixation Device, Open Approach (ICD-10-PCS; 2019-07-29)
DX: S72.141A Displaced intertrochanteric fracture of right femur, initial encounter for closed fracture (principal); J18.1 Lobar pneumonia, unspecified organism; N39.0 Urinary tract infection, site not specified; J44.0 Chronic obstructive pulmonary disease with (acute) lower respiratory infection; F03.90 Unspecified dementia, unspecified severity, without behavioral disturbance, psychotic disturbance, mood disturbance, and anxiety; E78.5 Hyperlipidemia, unspecified; N18.3 Chronic kidney disease, stage 3 (moderate); I12.9 Hypertensive chronic kidney disease with stage 1 through stage 4 chronic kidney disease, or unspecified chronic kidney disease; E86.0 Dehydration; E78.00 Pure hypercholesterolemia, unspecified; D69.6 Thrombocytopenia, unspecified; F41.1 Generalized anxiety disorder; I25.10 Atherosclerotic heart disease of native coronary artery without angina pectoris; E11.22 Type 2 diabetes mellitus with diabetic chronic kidney disease; H54.8 Legal blindness, as defined in USA; W18.39XA Other fall on same level, initial encounter; Z86.73 Personal history of transient ischemic attack (TIA), and cerebral infarction without residual deficits; Y93.89 Activity, other specified; Y92.89 Other specified places as the place of occurrence of the external cause; Y99.8 Other external cause status; Z79.899 Other long term (current) drug therapy
CPT/HCPCS: 36415; 70450; 71045; 71275; 72125; 73501; 73502; 73700; 76000; 76700; 80048; 80053; 81001; 82550; 82607; 82728; 82746; 82962; 83010; 83540; 83550; 83615; 84436; 84443; 84484; 85007; 85025; 85027; 85045; 85379; 85610; 85730; 86038; 86850; 86880; 86900; 86901; 87040; 87086; 93005; 93306; 93970; 97110; 97530; A6198; C1713; G0378; J0171; J0690; J1815; J1956; J2001; J2250; J2704

== ENCOUNTER 2019-08-09 14:14 | Inpatient (IN) | payer MEDICARE, MEDICAID ==
[~2019-08-09] VITALS: Ht 154.9 cm; Wt 69.4 kg
[2019-08-09 15:37] LABS: Albumin 2.5 g/dL (3.4-5.0); BUN/Creatinine Ratio 19.3; Calcium 8.1 mg/dL (8.5-10.1); Potassium 3.9 mmol/L (3.5-5.1)
[2019-08-09 15:40] LABS: Bilirubin, Total 1.3 mg/dL (0.2-1.0); Total Protein 5.3 g/dL (6.4-8.2)
[2019-08-09 15:47] LABS: Basophils # (auto) 0.1 uL; Basophils % (auto) 0.8 % (0.0-2.0); Hemoglobin 10.3 g/dL (12.2-16.2); Mean Corpuscular Hgb Conc. 32.3 g/dL (32.0-36.0); Red Blood Cells 3.52 10^6/uL (4.0-5.20)
[2019-08-09 15:48] LABS: INR 1.28 (0.9-1.15)
[2019-08-09 15:49] LABS: Eosinophils # (auto) 0.4 uL; Eosinophils % (auto) 2.2 % (0.0-7.0); Lymphocytes # (auto) 1.1 uL; Lymphocytes % (auto) 7.2 % (10.0-50.0); Mean Corpuscular Hemoglobin 29.3 pg (28.0-32.0); Mean Corpuscular Volume 90.9 fL (80.0-100.0); Monocytes # (auto) 1.1 uL; Monocytes % (auto) 7.1 % (0.0-12.0); Neutrophils # (auto) 13.2 uL; Neutrophils % (auto) 82.7 % (37.0-80.0); Red Cell Distribution Width 14.8 % (11.8-14.3); White Blood Cell 15.9 10^3/uL (4.4-10.8)
[2019-08-09 16:19] LABS: Platelet Count (auto) 17 10^3/uL (140-450)
[2019-08-09 16:53] LABS: Urine Bacteria NONE SEEN /hpf (None Seen); Urine Blood 2+ /uL (Negative); Urine Mucus FEW (None Seen); Urine Specific Gravity 1.019 (1.001-1.035); Urine WBC 5 /hpf (0 - 5)
[2019-08-09] MEDS ORDERED: HYDROcodone-ACET 10/325MG TAB PO ONE (17:15)
[2019-08-09] MEDS ORDERED: ACETAMINOPHEN 325 MG TAB PO PRN (21:45)
[2019-08-09] MEDS ORDERED: ONDANSETRON HCL 4 MG/2 ML VIAL IV PRN (21:45)
[2019-08-09] MEDS ORDERED: cefTRIAXone 1GM/50ML D5W 50 ML IV ONE (21:45)
[2019-08-09] MEDS ORDERED: HYDROcodone-ACET 5/325MG TAB PO PRN (21:45)
[2019-08-09] MEDS: ATORVASTATIN 20 MG TAB PO SCH (22:00)
[2019-08-09 22:30] VITALS: BP 97/56
[2019-08-09 22:46] VITALS: BP 104/53
[2019-08-09 23:07] VITALS: BP 94/52
[2019-08-10] MEDS ORDERED: ALBUMIN 5% 250 ML IV ONE (02:30)
[2019-08-10] MEDS ORDERED: SODIUM CHLORIDE 0.9% 500 ML IV ONE (04:45)
[2019-08-10] MEDS: SODIUM CHLORIDE 0.9% 1,000 ML IV SCH ×2 (05:42→19:18)
[2019-08-10 06:37] VITALS: BP 92/47
--- NOTE | 2019-08-10 07:00 | NUR ---
Telemetry admit from ER SIN BOSS admitted to Telemetry unit after SBAR received. Patient oriented to Sj corbett RN, unit, room 220, bed A, and unit policies regarding patient care and visiting hours. Patient now on continuous telemetry monitoring, tele box #38 and telemetry reading on arrival to unit is SR 82. Patient placed on bedside oxygen, weighed by bedscale and encouraged to call if they need something. All questions and concerns addressed, patient verbalized understanding. Patient is confused. Wound photo taken for sacral wound.
[2019-08-10 09:00] VITALS: BP 115/65
[2019-08-10] MEDS: cefTRIAXone 1GM/50ML D5W 50 ML IV SCH (09:03)
[2019-08-10] MEDS ORDERED: CLOPIDOGREL BISULFATE 75 MG TAB PO SCH (10:00)
[2019-08-10] MEDS ORDERED: RIVAROXABAN 10 MG TAB PO SCH (10:00)
[2019-08-10] MEDS: MEMANTINE HCL 5 MG TAB PO SCH (10:13)
[2019-08-10] MEDS: PANTOPRAZOLE 40 MG TAB PO SCH (10:13)
--- NOTE | 2019-08-10 11:00 | NUR ---
WOUND DRESSING DONE ON SACRUM WOUND CLEANSE WITH WOUND CLEANSER, PAT DRY, ZGUARD AND OPTIFOAM APPLIED.
[2019-08-10 11:23] LABS: Basophils # (auto) 0.1 uL; Eosinophils # (auto) 0.3 uL; Hematocrit 25.8 % (36.0-46.0); Hemoglobin 8.5 g/dL (12.2-16.2); Lymphocytes # (auto) 0.8 uL; Monocytes % (auto) 7.6 % (0.0-12.0)
[2019-08-10 11:25] LABS: Eosinophils % (auto) 1.9 % (0.0-7.0); Lymphocytes % (auto) 5.7 % (10.0-50.0); Mean Corpuscular Hemoglobin 29.2 pg (28.0-32.0); Mean Corpuscular Volume 88.5 fL (80.0-100.0); Neutrophils # (auto) 11.3 uL; Neutrophils % (auto) 83.8 % (37.0-80.0); Red Blood Cells 2.92 10^6/uL (4.0-5.20); Red Cell Distribution Width 14.7 % (11.8-14.3); White Blood Cell 13.5 10^3/uL (4.4-10.8)
[2019-08-10 11:38] LABS: Platelet Count (auto) 30 10^3/uL (140-450)
[2019-08-10 11:47] LABS: BUN/Creatinine Ratio 17.1; Calcium 7.5 mg/dL (8.5-10.1); Potassium 3.9 mmol/L (3.5-5.1)
[2019-08-10 13:00] VITALS: BP 105/52
--- NOTE | 2019-08-10 14:35 | NUR ---
pt seen by wound care nurse Rasheeda, she said she ordered air mattress bed for the pt.
--- NOTE | 2019-08-10 14:40 | NUR ---
WOUND CARE NOTE: Wound care consult received from nursing. Patient is a 88yo female admitted for thrombocytopenia and SIRS. Patient with a history of dementia, hyperlipidemia, CVA and right hip surgery. Patient seen with bedside RNMaday. Patient is alert and denies pain. Last Stephen score is 16. Patient is incision to right hip which is C/D/I. Patient also with wound to sacrum. Patient with open area that measures 2x1.5cm. No other open wounds noted. RECOMMENDATIONS: Dietary consult; turn q2hrs; specialty bed; Nursing to cleanse sacral wound with wound cleanser, pat dry, apply ZGUARD BID/PRN, cover with OPTIFOAM GENTLE dressing; wound care team to follow. Addendum: 08/10/19 at 1735 by YENNI WHITE RN Amended: Links added.
--- NOTE | 2019-08-10 16:20 | NUR ---
[place] AND [facility]NAL[facility] OF [facility] AT BEDSIDE, [place] REMOVED THE NI.
[2019-08-10 17:00] VITALS: BP 100/49
--- NOTE | 2019-08-10 18:48 | NUR ---
PT TRANSFERRED TO AIR MATTRESS BED.
[2019-08-10] MEDS ORDERED: DEXTROSE (50%) 50ML SYRG IV PRN (19:00)
[2019-08-10 22:00] VITALS: BP 108/54
[2019-08-10] MEDS: ATORVASTATIN 20 MG TAB PO SCH (22:57)
[2019-08-10] MEDS: methylPREDNISolone SOD SUCC 125 MG/2 ML VL IV SCH (22:58)
[2019-08-11] MEDS: ACCU-CHEK COMFORT CURVE STRIP VI SCH ×5 (00:40→23:37)
[2019-08-11] MEDS: InsuLIN REG 1unit/0.01ml Soln (100units/ml) SC SCH ×5 (00:41→23:42)
[2019-08-11 05:00] VITALS: BP 115/66
[2019-08-11] MEDS: methylPREDNISolone SOD SUCC 125 MG/2 ML VL IV SCH ×3 (06:01→21:30)
--- NOTE | 2019-08-11 07:30 | NUR ---
Opening Shift Note Assumed care of patient. No S/S of distress/SOB or pain. Instructed on POC and to call for assist PRN, will continue to monitor for changes Q1hr and PRN. Patient is on air mattress.
[2019-08-11 07:34] LABS: Eosinophils # (auto) 0 uL; Lymphocytes # (auto) 0.4 uL; Mean Corpuscular Hemoglobin 30.2 pg (28.0-32.0); Mean Corpuscular Volume 90.5 fL (80.0-100.0); Monocytes # (auto) 0.1 uL; Monocytes % (auto) 0.9 % (0.0-12.0)
[2019-08-11 07:35] LABS: Basophils # (auto) 0 uL; Basophils % (auto) 0.2 % (0.0-2.0); Hematocrit 27.9 % (36.0-46.0); Hemoglobin 9.3 g/dL (12.2-16.2); Lymphocytes % (auto) 2.6 % (10.0-50.0); Mean Corpuscular Hgb Conc. 33.4 g/dL (32.0-36.0); Neutrophils # (auto) 13.9 uL; Neutrophils % (auto) 96.3 % (37.0-80.0); Red Blood Cells 3.09 10^6/uL (4.0-5.20); Red Cell Distribution Width 14.7 % (11.8-14.3); White Blood Cell 14.5 10^3/uL (4.4-10.8)
[2019-08-11] MEDS: SODIUM CHLORIDE 0.9% 1,000 ML IV SCH ×2 (07:35→21:45)
[2019-08-11 07:40] LABS: % Iron Saturation 10.2 % (15-50)
[2019-08-11 08:06] LABS: Platelet Count (auto) 33 10^3/uL (140-450)
[2019-08-11 09:00] VITALS: BP 104/55
--- NOTE | 2019-08-11 09:37 | NUR ---
Dr. Sinclair in to see patient as hospitalist.
[2019-08-11] MEDS: MEMANTINE HCL 5 MG TAB PO SCH (10:09)
[2019-08-11] MEDS: CYANOCOBALAMIN 500 MCG TAB PO SCH (10:09)
[2019-08-11] MEDS: cefTRIAXone 1GM/50ML D5W 50 ML IV SCH (10:09)
[2019-08-11] MEDS: PANTOPRAZOLE 40 MG TAB PO SCH (10:09)
[2019-08-11] MEDS ORDERED: METHIMAZOLE 5 MG TAB PO ONE (10:15)
[2019-08-11] MEDS: IRON SUCROSE COMPLEX 200 MG in SODIUM CHL 0.9% 100 ML IV SCH (11:45)
[2019-08-11 13:00] VITALS: BP 104/58
[2019-08-11 17:00] VITALS: BP 115/63
--- NOTE | 2019-08-11 20:00 | NUR ---
RECEIVE IN BED ON AIR MATRESS REPOSITIONED ON LEFT SIDE NO VOICED COMPLAINTS
[2019-08-11] MEDS: ATORVASTATIN 20 MG TAB PO SCH (21:30)
[2019-08-11 22:00] VITALS: BP 107/57
[2019-08-12 05:00] VITALS: BP 110/59
[2019-08-12] MEDS: InsuLIN REG 1unit/0.01ml Soln (100units/ml) SC SCH ×4 (06:00→23:34)
[2019-08-12] MEDS: ACCU-CHEK COMFORT CURVE STRIP VI SCH ×4 (06:03→23:34)
[2019-08-12] MEDS: methylPREDNISolone SOD SUCC 125 MG/2 ML VL IV SCH ×3 (06:05→21:31)
--- NOTE | 2019-08-12 07:30 | NUR ---
Opening Shift Note Assumed care of patient, awake and pleasantly confused. No S/S of distress/SOB or pain. Instructed on POC and to call for assist PRN, will continue to monitor for changes Q1hr and PRN. Patient on air mattress.
[2019-08-12 07:46] LABS: Basophils # (auto) 0 uL; Basophils % (auto) 0.2 % (0.0-2.0); Eosinophils # (auto) 0 uL; Monocytes # (auto) 0.4 uL; Neutrophils # (auto) 19.6 uL
[2019-08-12 07:48] LABS: Hematocrit 27.6 % (36.0-46.0); Hemoglobin 9.4 g/dL (12.2-16.2); Lymphocytes # (auto) 0.4 uL; Lymphocytes % (auto) 2.1 % (10.0-50.0); Mean Corpuscular Hemoglobin 30.2 pg (28.0-32.0); Mean Corpuscular Hgb Conc. 34.2 g/dL (32.0-36.0); Mean Corpuscular Volume 88.5 fL (80.0-100.0); Neutrophils % (auto) 95.7 % (37.0-80.0); Platelet Count (auto) 61 10^3/uL (140-450); Red Blood Cells 3.12 10^6/uL (4.0-5.20); Red Cell Distribution Width 14.7 % (11.8-14.3); White Blood Cell 20.5 10^3/uL (4.4-10.8)
[2019-08-12 08:05] LABS: Albumin 2.6 g/dL (3.4-5.0); Potassium 3.8 mmol/L (3.5-5.1)
[2019-08-12 08:08] LABS: Bilirubin, Total 0.9 mg/dL (0.2-1.0); Total Protein 5.4 g/dL (6.4-8.2)
[2019-08-12 08:23] VITALS: BP 106/52
[2019-08-12] MEDS: PANTOPRAZOLE 40 MG TAB PO SCH (10:00)
[2019-08-12] MEDS: SODIUM CHLORIDE 0.9% 1,000 ML IV SCH ×2 (10:05→23:27)
[2019-08-12] MEDS: cefTRIAXone 1GM/50ML D5W 50 ML IV SCH (10:29)
[2019-08-12] MEDS: CYANOCOBALAMIN 500 MCG TAB PO SCH (10:30)
[2019-08-12] MEDS: METHIMAZOLE 5 MG TAB PO SCH (10:30)
[2019-08-12] MEDS: MEMANTINE HCL 5 MG TAB PO SCH (10:31)
[2019-08-12 12:05] VITALS: BP 102/56
[2019-08-12] MEDS: IRON SUCROSE COMPLEX 200 MG in SODIUM CHL 0.9% 100 ML IV SCH (12:57)
--- NOTE | 2019-08-12 13:10 | NUR ---
NUTRITION CONSULT/ASSESSMENT NOTES Please refer to link notes of nutrition screen form filed under the intervention section of the plan of care for further details. Est. Needs: 1450 kcal to 1850 kcal (20-25 kcal/kgBW), 74 gms to 89 gms pro (1.0-1.2 gms/kgBW). Will continue to monitor pertinent labs and reassess nutrient need prn Thank you for this consult. Addendum: 08/12/19 at [address] Amended: Links added.
--- NOTE | 2019-08-12 15:00 | NUR ---
Dr. Adolfo Washington in to see patient for orthopedic follow up.
[2019-08-12 16:56] VITALS: BP 117/58
[2019-08-12 21:00] VITALS: BP 111/58
--- NOTE | 2019-08-12 21:00 | NUR ---
RECEIVE IN BED PULLING ON TELEMETRY REORIENT TO SURROUNDINGS IS CALLING FOR FAMILY MEMBER REPOSITIONED
[2019-08-12] MEDS: ATORVASTATIN 20 MG TAB PO SCH (21:38)
--- NOTE | 2019-08-13 04:35 | NUR ---
PULLED LT EXTERNAL JUGULAR IV OUT TIP IS INTACT .COMPLETE BED LINEN DONE ATTEMPTED TO REINSERT IV NO SUCCESS
[2019-08-13 05:00] VITALS: BP 106/50
[2019-08-13] MEDS: methylPREDNISolone SOD SUCC 125 MG/2 ML VL IV SCH ×3 (06:00→22:34)
[2019-08-13] MEDS: InsuLIN REG 1unit/0.01ml Soln (100units/ml) SC SCH ×3 (06:07→17:46)
[2019-08-13] MEDS: ACCU-CHEK COMFORT CURVE STRIP VI SCH ×3 (06:07→17:46)
--- NOTE | 2019-08-13 08:00 | NUR ---
Opening Shift Note Assumed care of patient, resting with eyes closed, wakes easily to touch/sound. No IV at this time, attempt unsuccessful. Another floor nurse will try when available. Until then, unable to give Rocephin. Will start when IV access available. No S/S of distress/SOB or pain. Instructed on POC and to call for assist PRN, will continue to monitor for changes Q1hr and PRN.
[2019-08-13 09:00] VITALS: BP 100/53
[2019-08-13] MEDS: cefTRIAXone 1GM/50ML D5W 50 ML IV SCH (09:00)
[2019-08-13 09:58] LABS: Basophils # (auto) 0.1 uL; Eosinophils # (auto) 0 uL; Hemoglobin 8.4 g/dL (12.2-16.2); Lymphocytes # (auto) 0.4 uL
[2019-08-13] MEDS: MEMANTINE HCL 5 MG TAB PO SCH (09:58)
[2019-08-13] MEDS: PANTOPRAZOLE 40 MG TAB PO SCH (09:58)
[2019-08-13] MEDS: METHIMAZOLE 5 MG TAB PO SCH (09:58)
[2019-08-13 09:59] LABS: Basophils % (auto) 0.3 % (0.0-2.0); Hematocrit 25.6 % (36.0-46.0); Lymphocytes % (auto) 1.8 % (10.0-50.0); Mean Corpuscular Hemoglobin 29.7 pg (28.0-32.0); Mean Corpuscular Volume 89.9 fL (80.0-100.0); Monocytes # (auto) 0.6 uL; Neutrophils # (auto) 19.7 uL; Neutrophils % (auto) 94.9 % (37.0-80.0); Nucleated Red Blood Cells % 0.1 %; Platelet Count (auto) 53 10^3/uL (140-450); Red Blood Cells 2.84 10^6/uL (4.0-5.20); Red Cell Distribution Width 14.9 % (11.8-14.3); White Blood Cell 20.7 10^3/uL (4.4-10.8)
[2019-08-13] MEDS: CYANOCOBALAMIN 500 MCG TAB PO SCH (09:59)
[2019-08-13] MEDS: FLUCONAZOLE 100 MG TAB PO SCH (10:15)
[2019-08-13 10:17] LABS: Albumin 2.4 g/dL (3.4-5.0); BUN/Creatinine Ratio 29.7; Calcium 7.8 mg/dL (8.5-10.1); Potassium 3.6 mmol/L (3.5-5.1)
[2019-08-13 10:19] LABS: Bilirubin, Total 0.6 mg/dL (0.2-1.0); Total Protein 4.9 g/dL (6.4-8.2)
[2019-08-13 11:28] LABS: Ferritin 172.3 ng/mL (10-322)
[2019-08-13 11:29] LABS: Folate (Folic Acid) 6.25 ng/mL (5.38-24)
[2019-08-13 13:00] VITALS: BP 102/59
[2019-08-13] MEDS: IRON SUCROSE COMPLEX 200 MG in SODIUM CHL 0.9% 100 ML IV SCH (13:13)
[2019-08-13 17:00] VITALS: BP 129/70
[2019-08-13 21:44] VITALS: BP 127/68
--- NOTE | 2019-08-13 22:30 | NUR ---
IV insertion IV access obtained, via clean sterile technique by inserting 22 gauge catheter at left wrist after 1 attempt. IV secured properly. No trauma to site. Patient tolerated well.
[2019-08-13] MEDS: ATORVASTATIN 20 MG TAB PO SCH (22:34)
[2019-08-14] MEDS: InsuLIN REG 1unit/0.01ml Soln (100units/ml) SC SCH ×4 (00:28→18:00)
[2019-08-14] MEDS: ACCU-CHEK COMFORT CURVE STRIP VI SCH ×4 (00:28→18:01)
[2019-08-14 04:48] LABS: Basophils # (auto) 0.1 uL; Basophils % (auto) 0.4 % (0.0-2.0); Eosinophils # (auto) 0 uL; Hemoglobin 8.7 g/dL (12.2-16.2); Lymphocytes # (auto) 0.4 uL; Lymphocytes % (auto) 2.3 % (10.0-50.0); Mean Corpuscular Hemoglobin 30.2 pg (28.0-32.0); Mean Corpuscular Hgb Conc. 33.6 g/dL (32.0-36.0); Mean Corpuscular Volume 89.7 fL (80.0-100.0); Monocytes # (auto) 0.4 uL; Monocytes % (auto) 2.1 % (0.0-12.0); Neutrophils % (auto) 95.2 % (37.0-80.0); Platelet Count (auto) 53 10^3/uL (140-450); Red Cell Distribution Width 15.2 % (11.8-14.3); White Blood Cell 16.8 10^3/uL (4.4-10.8)
[2019-08-14 05:11] LABS: BUN/Creatinine Ratio 25.8
[2019-08-14] MEDS: methylPREDNISolone SOD SUCC 125 MG/2 ML VL IV SCH (05:56)
[2019-08-14 05:57] VITALS: BP 100/58
[2019-08-14 09:00] VITALS: BP 112/54
[2019-08-14] MEDS: cefTRIAXone 1GM/50ML D5W 50 ML IV SCH (09:01)
[2019-08-14] MEDS: FLUCONAZOLE 100 MG TAB PO SCH (10:37)
[2019-08-14] MEDS: PANTOPRAZOLE 40 MG TAB PO SCH (10:37)
[2019-08-14] MEDS: METHIMAZOLE 5 MG TAB PO SCH (10:37)
[2019-08-14] MEDS: MEMANTINE HCL 5 MG TAB PO SCH (10:37)
[2019-08-14] MEDS: CYANOCOBALAMIN 500 MCG TAB PO SCH (10:37)
[2019-08-14] MEDS: IRON SUCROSE COMPLEX 200 MG in SODIUM CHL 0.9% 100 ML IV SCH (12:13)
[2019-08-14 12:27] LABS: INR 1.02 (0.9-1.15)
[2019-08-14 13:00] VITALS: BP_SYST 113; BP_SYST 94; BP_DIAS 49; BP_DIAS 71
--- NOTE | 2019-08-14 14:55 | NUR ---
prashanth Polo made aware of the social worker clinical consult pending discharge.
--- NOTE | 2019-08-14 15:23 | NUR ---
spoke with Melani, pt was accepted by [facility], pt is going to room 508 bed 1, accepting doctor is doctor Sinclair, bean picker time is 5pm.
--- NOTE | 2019-08-14 15:25 | NUR ---
FAMILY MADE AWARE PT WILL BE TRANSFERRED TO [facility], ROOM 508, BED 1 AND DIRECTOR OF MARKET RESEARCH TIME AT 5PM, SPOKE WITH LAURITA.
--- NOTE | 2019-08-14 15:30 | NUR ---
SPOKE WITH DR. VERNON PER DR. VERNON MIDLINE IS OKAY.
--- NOTE | 2019-08-14 15:49 | NUR ---
D/C planning Per consult for Pt to return back to [facility]. Contacted [facility] Ph:) Fax:) faxed medical records. Per Marcus from [facility] Pt has been accepted to room [address] Sinclair. Contacted General transport Ph:) spoke to Malachi. Advised [facility] to arrange transportation between 18:0-19:00 via [employer]. Informed FELICIA Nassar. Addendum: 08/14/19 at 1556 by JERICA BLACK Amended: Links added.
--- NOTE | 2019-08-14 16:17 | NUR ---
Midline Placement: Patient educated on need for midline placement. All risks and benefits explained and all questions and concerns addresses prior to procedure. 3Fr 20cm midline inserted via right basilic vein using Ultrasound. Sterile technique utilized. Blood return obtained from the single lumen and flushed easily with NS using proper technique. Midline secured with saline lock; biodisc and occlusive dressing applied. Primary RN notified. Midline lot #[id number] Internal length 20cm External length 0cm
--- NOTE | 2019-08-14 16:28 | NUR ---
assessment re: tameka consult goals of care Patient is a 89 year old female who is confused. Prior to admission patient was skilled at [facility] for hip fracture. Per patients Granddaughter Ayaka patient will return to [facility] on discharge. Patients PCP is Dr Sinclair. I informed Ayaka she has a right to speak to a psychiatric social worker regarding all care. I informed Ayaka she has a right to participate in any and all discharge planning. Patient does not have a POA and advanced directive. I have offered Ayaka information on POA and advanced directives. I informed Ayaka the advantages and benefits of having an Advanced Directive. Ayaka verbalized understanding and agreed to discharge plan to SNF. Addendum: 08/14/19 at 1707 by Emmanuelle RANGEL Amended: Links added.
--- NOTE | 2019-08-14 16:30 | NUR ---
DISCHARGE WOUND PHOTO TAKEN
[2019-08-14 17:00] VITALS: BP 123/69
--- NOTE | 2019-08-14 17:13 | NUR ---
report called to FELICIA King in [facility].
[2019-08-14 17:15] VITALS: BP 123/69
--- NOTE | 2019-08-14 19:00 | NUR ---
Discharge TO [facility] [place] given as ordered. All questions and concerns addressed. Patient verbalized understanding. Medication reconciliation form completed and copy given to patient. IV removed with catheter intact, pressure dressing applied, barker catheter removed. Telemetry unit returned to ICU. Patient taken to vehicle via [facility] with all personal belongings, accompanied by GENERAL TRANSPORT STAFF. No distress noted at time of departure.
[2019-08-14] MEDS ORDERED: predniSONE 20 MG TAB PO SCH (22:00)
== END 2019-08-14 19:00 | DRG 813 ==
LOC: EDBD 14:14 → ER 14:17 → OVERFLOW 14:18 → CENTRAL 23:51 → TELE-CENTR 08-10 06:14
PROVIDERS: ADMIT Nurse Practitioner; ATTEND Internal Medicine
PROC: 30233R1 Transfusion of Nonautologous Platelets into Peripheral Vein, Percutaneous Approach (ICD-10-PCS; principal; 2019-08-09)
DX: D69.3 Immune thrombocytopenic purpura (principal); E44.1 Mild protein-calorie malnutrition; E87.0 Hyperosmolality and hypernatremia; J98.11 Atelectasis; D68.9 Coagulation defect, unspecified; F03.90 Unspecified dementia, unspecified severity, without behavioral disturbance, psychotic disturbance, mood disturbance, and anxiety; D72.829 Elevated white blood cell count, unspecified; E78.5 Hyperlipidemia, unspecified; H54.7 Unspecified visual loss; D64.9 Anemia, unspecified; I70.0 Atherosclerosis of aorta; T38.0X5A Adverse effect of glucocorticoids and synthetic analogues, initial encounter; E53.8 Deficiency of other specified B group vitamins; E05.90 Thyrotoxicosis, unspecified without thyrotoxic crisis or storm; E61.1 Iron deficiency; Z86.73 Personal history of transient ischemic attack (TIA), and cerebral infarction without residual deficits; Y92.89 Other specified places as the place of occurrence of the external cause; Z68.28 Body mass index [BMI] 28.0-28.9, adult; Z79.899 Other long term (current) drug therapy
CPT/HCPCS: 36415; 71045; 73700; 80048; 80053; 81001; 82607; 82728; 82746; 82962; 83010; 83036; 83540; 83550; 83605; 83615; 84439; 85025; 85045; 85610; 85730; 86850; 86880; 86900; 86901; 87040; 87081; 87086; 87088; 93005; 96361; 96365; 96367; G0378; J0696; J1756; J1815

== ENCOUNTER 2019-08-30 11:11 | Emergency (ER) | payer MEDICARE, MEDICAID ==
[~2019-08-30] VITALS: Ht 160 cm; Wt 54.4 kg
[2019-08-30] MEDS ORDERED: SODIUM CHLORIDE 0.9% 1,000 ML IV ONE (12:06)
[2019-08-30 13:08] LABS: Basophils # (auto) 0 uL; Hemoglobin 13.8 g/dL (12.2-16.2); Lymphocytes # (auto) 0.4 uL; Neutrophils # (auto) 13.6 uL; Neutrophils % (auto) 94.9 % (37.0-80.0); Nucleated Red Blood Cells % 0.1 %; White Blood Cell 14.4 10^3/uL (4.4-10.8)
[2019-08-30 13:09] LABS: Basophils % (auto) 0.1 % (0.0-2.0); Eosinophils # (auto) 0.1 uL; Eosinophils % (auto) 0.4 % (0.0-7.0); Hematocrit 43.5 % (36.0-46.0); Lymphocytes % (auto) 2.6 % (10.0-50.0); Mean Corpuscular Hemoglobin 30.6 pg (28.0-32.0); Mean Corpuscular Hgb Conc. 31.8 g/dL (32.0-36.0); Mean Corpuscular Volume 96.1 fL (80.0-100.0); Monocytes # (auto) 0.3 uL; Red Blood Cells 4.52 10^6/uL (4.0-5.20)
[2019-08-30 13:19] LABS: Platelet Count (auto) 4 10^3/uL (140-450)
[2019-08-30 13:24] LABS: INR 1.04 (0.9-1.15); Partial Thromboplastin Time 24.8 sec (23.64-32.05)
[2019-08-30 13:31] LABS: Albumin 2.9 g/dL (3.4-5.0); Anion Gap 5 (5-15); BUN/Creatinine Ratio 43.5; Blood Urea Nitrogen 37 mg/dL (7-18); Carbon Dioxide 29 mmol/L (21-32); Chloride 109 mmol/L (98-107); GFR African American 81 mL/min; GFR Non-African American 67 mL/min; Glucose 220 mg/dL (74-106); Potassium 3.9 mmol/L (3.5-5.1); Sodium 143 mmol/L (136-145)
[2019-08-30 13:34] LABS: Lactic Acid w/Reflex 2.6 mmol/L (0.4-2.0)
[2019-08-30 13:36] LABS: Alanine Aminotransferase 96 U/L (13-56); Alkaline Phosphatase 114 U/L (45-117); Aspartate Aminotransferase 43 U/L (15-37); Bilirubin, Total 1.2 mg/dL (0.2-1.0); Total Protein 5.7 g/dL (6.4-8.2)
[2019-08-30] MEDS ORDERED: MIDAZOLAM HCL 5 MG/ML-1ML VIAL IV ONE (14:00)
[2019-08-30 14:04] VITALS: BP 107/47
== END 2019-08-30 14:27 | disposition short-term general hospital (02) ==
LOC: EDBD 11:11 → ER 11:11
DX: N39.0 Urinary tract infection, site not specified (principal); D69.6 Thrombocytopenia, unspecified; E13.22 Other specified diabetes mellitus with diabetic chronic kidney disease; N18.3 Chronic kidney disease, stage 3 (moderate); E78.5 Hyperlipidemia, unspecified; H54.3 Unqualified visual loss, both eyes; Z86.73 Personal history of transient ischemic attack (TIA), and cerebral infarction without residual deficits
CPT/HCPCS: 36415; 70450; 71045; 80053; 83605; 83880; 84484; 85025; 85610; 85730; 87040; 93970; 99291